=== PATIENT | female | born 1930 | race Caucasian/White ===

== ENCOUNTER 2018-12-04 19:45 | Inpatient (IN) | payer MEDICARE ==
[2018-12-03 23:00] VITALS: BP 138/74
[~2018-12-04] VITALS: Ht 162.6 cm; Wt 86.2 kg
--- NOTE | 2018-12-04 20:10 | NUR ---
The patient, JUNIE VALENCIA, 88 y/o, F admitted by ABIGAIL BRANHAM MD, was given written information regarding hospital policies, unit procedures and contact persons. Patient arrived to room via wheelchair assisted by registration staff member. Patient's daughter is at bedside at this time. Valuables were checked and noted. The patient was resting in bed at this time. Patient is Alert and oriented and is able to make their needs known at this time. Patient states no complaints of pain or discomfort while being asked admission questions. However the patient did become nauseous and started to vomit shortly after finishing admission questions. This RN is attempting to reach MD at this time for admit orders. The patient's call light is within reach. This RN will continue to monitor the patient at this time.
[2018-12-04 20:15] VITALS: BP 182/99
[2018-12-04] MEDS ORDERED: ATOR40TA59 PO (20:47)
[2018-12-04] MEDS ORDERED: ASPI-630 PO (20:47)
[2018-12-04] MEDS ORDERED: HYDR12.58 PO (20:47)
[2018-12-04] MEDS ORDERED: CLOP75TA PO (20:47)
[2018-12-04] MEDS: IV 1/2 NORMAL SALINE 1,000 ML IV SCH (22:20)
[2018-12-04] MEDS: ONDANSETRON PF 4 MG/2 ML VIAL. IV PRN (22:20)
[2018-12-04 22:52] LABS: BASO % 0 % (0-3); EOS % 0 % (0-3); HEMATOCRIT 39.7 % (36.0-47.0); HEMOGLOBIN 13.2 g/dL (12.0-15.5); LYMPH # 1.4 x10^3/uL (1.0-4.8); LYMPH % 14 % (24-48); MEAN CORPUSCULAR HEMOGLOBIN 27 pg (25-35); MEAN CORPUSCULAR HGB CONC 33 g/dL (31-37); MEAN CORPUSCULAR VOLUME 81 fL (79-100); MONO # 0.6 x10^3/uL (0.0-1.1); MONO % 6 % (0-9); NEUT # 8.4 x10^3uL (1.8-7.7); NEUT % 80 % (31-73); PLATELET COUNT 236 x10^3/uL (140-400); RED BLOOD COUNT 4.91 x10^6/uL (3.50-5.40); RED CELL DISTRIBUTION WIDTH 15.1 % (11.5-14.5); WHITE BLOOD COUNT 10.4 x10^3/uL (4.0-11.0)
[2018-12-04 23:00] VITALS: BP 138/74
[2018-12-04 23:13] LABS: ALBUMIN 3.3 g/dL (3.4-5.0); ALBUMIN/GLOBULIN RATIO 0.8 (1.0-1.7); CALCIUM 8.8 mg/dL (8.5-10.1); GFR 52.3; POTASSIUM 3.9 mmol/L (3.5-5.1); TOTAL BILIRUBIN 0.5 mg/dL (0.2-1.0); TOTAL PROTEIN 7.3 g/dL (6.4-8.2)
[2018-12-05 03:00] VITALS: BP 126/71
[2018-12-05 07:15] VITALS: BP 117/67
[2018-12-05] MEDS ORDERED: IOHEXOL 300 MG/ML 100ML VIAL. IV ONE (07:45)
--- NOTE | 2018-12-05 08:39 | HP ---
ADMIT DATE: 12/04/2018 CHIEF COMPLAINT AND HISTORY OF PRESENT ILLNESS: This 88-year-old white female is well known to me from followup in the office. I did see the patient earlier in the day in the office and she was felt to have a left pyelonephritis that was partially treated. She had been taking some amoxicillin at home that she had left over from prior infection, but was just overall feeling horrible. She denied, however, any fevers, chills or sweats. She was taking p.o. without nausea or vomiting at that time; however, still appeared ill, was started on Cipro with the urine culture obtained, was told if she was getting worse to call the who called on the evening of admission, stating she was much worse now with nausea, vomiting, inability to keep things down and the patient was directly admitted to the floor for IV hydration, nausea control, IV antibiotics while we are awaiting cultures. PAST MEDICAL HISTORY: Remarkable for hypertension. She had a prior tonsillectomy, adenoidectomy, prior hysterectomy, history of skin cancers, has had urinary tract infections over the years. She does have a history of a stroke. MEDICATIONS: Brought with the patient, listed on the computer, have been addressed. ALLERGIES: She has no known drug allergies. SOCIAL HISTORY: The patient is a nonsmoker, nondrinker. , lives at home with her . FAMILY HISTORY: Noncontributory. REVIEW OF SYSTEMS: Remarkable for just the generalized feeling horrible all over, the nausea, and vomiting which has gotten better with Zofran, ongoing left flank pain. She denies any dysuria, etc. PHYSICAL EXAMINATION: GENERAL: She is well-developed, well-nourished white female, in no acute distress. Daughter is in attendance. VITAL SIGNS: Stable. She is afebrile. HEAD, EYES, EARS, NOSE AND THROAT: Remarkable for several scabs on her left forehead and left side of her face from recent Efudex she used for actinic keratosis. NECK: Supple, without adenopathy or thyromegaly. CHEST: Clear to auscultation and percussion. HEART: Regular rate and rhythm without S3, S4, or murmur. ABDOMEN: Soft, nontender, without hepatosplenomegaly or masses. She does have some left flank tenderness. EXTREMITIES: Without cyanosis, clubbing, edema. NEUROLOGIC: She is intact. IMPRESSION: Left pyelonephritis with failed outpatient treatment with nausea, vomiting as discussed above. PLAN: Continue present IV hydration. I am going to keep her on IV Rocephin until we have a urine culture back and if one does not look like it was obtained here yesterday as ordered, but we have one cooking in the office. ABIGAIL BRANHAM MD DR: RON/nazario JOB#: [id number] / [id number]
[2018-12-05] MEDS: CLOPIDOGREL BISULFATE 75 MG TABLET PO SCH (08:55)
[2018-12-05] MEDS: hydroCHLOROthiazide 12.5 MG CAPSULE PO SCH (08:55)
[2018-12-05] MEDS: ONDANSETRON PF 4 MG/2 ML VIAL. IV PRN (08:56)
[2018-12-05] MEDS: ASPIRIN CHEWABLE 81 MG TABLET. PO SCH (08:56)
[2018-12-05] MEDS: IV 1/2 NORMAL SALINE 1,000 ML IV SCH ×2 (08:59→19:59)
[2018-12-05] MEDS ORDERED: METOCLOPRAMIDE HCL 10 MG/2 ML VIAL. IV ONE (09:45)
--- NOTE | 2018-12-05 10:02 | RAD ---
CT study of the abdomen and pelvis with contrast Clinical indications: Abdominal pain. Left flank pain. History of hysterectomy. History of skin cancer. TECHNIQUE: After IV infusion of 60 cc of Omnipaque 300, helical CT scanning of the abdomen and pelvis was performed. No GI contrast was administered. This may decrease the sensitivity to detect GI tract pathology. PQRS compliance Statement One or more of the following individualized dose reduction techniques were utilized for this study: 1. Automated exposure control 2. Adjustment of the mA and/or kV according to patient size 3. Use of iterative reconstruction technique FINDINGS: The liver and spleen are unremarkable. Diffuse fatty atrophy of the pancreas is seen. The gallbladder is normal and no extrahepatic biliary ductal dilatation is seen. No adrenal mass is evident. Small punctate nonobstructing stone of the left kidney is seen. No hydronephrosis or hydroureter is seen. No renal mass is evident. Urinary bladder wall is smooth. No focal aneurysmal dilatation of the abdominal aorta is seen. No enlarged abdominal or pelvic lymphadenopathy is evident. No obstructive bowel pattern is evident. The appendix is normal. Terminal ileum is unremarkable. Mild sigmoid diverticulosis is seen without diverticulitis. A small hiatal hernia is seen. Stomach is not distended. No free air or free fluid or mesenteric edema is seen. No lytic process is seen. No lung base consolidation is evident. Calcific granuloma of the posterior right lung base is seen. IMPRESSION: No acute abnormality is evident. Electronically signed by: Calixto Espinoza MD (12/05/2018 9:59 AM) [facility]
[2018-12-05] MEDS: cefTRIAXone IV Push 1 GM VIAL. IVP SCH (10:09)
[2018-12-05 10:52] VITALS: BP 124/74
--- NOTE | 2018-12-05 11:23 | NUR ---
SW following, discussed with RN. Pt is from home with . RN advised no SW needs at this time. SW will continue to follow.
[2018-12-05 11:49] LABS: BILIRUBIN,URINE NEGATIVE (NEG); CLARITY,URINE CLEAR; COLOR,URINE YELLOW; NITRITE,URINE NEGATIVE (NEG); PH,URINE 6.5; PROTEIN,URINE NEGATIVE (NEG-TRACE); UROBILINOGEN,URINE 0.2 mg/dL (0.2 mg/dL)
[2018-12-05 12:01] LABS: BACTERIA,URINE 0 /HPF (0-FEW); RBC,URINE 0 /HPF (0-2)
[2018-12-05 15:00] VITALS: BP 131/76
[2018-12-05 19:00] VITALS: BP 135/44
[2018-12-05] MEDS: ATORVASTATIN CALCIUM 40 MG TABLET. PO SCH (20:00)
[2018-12-05 22:48] VITALS: BP 131/63
[2018-12-06 02:45] VITALS: BP 152/97
[2018-12-06] MEDS: fentaNYL PF VIAL 100 MCG/2 ML VIAL IV PRN ×3 (03:29→09:02)
[2018-12-06] MEDS: ONDANSETRON PF 4 MG/2 ML VIAL. IV PRN ×3 (03:35→16:24)
[2018-12-06] MEDS: IV 1/2 NORMAL SALINE 1,000 ML IV SCH (06:05)
[2018-12-06 07:00] VITALS: BP 153/92
[2018-12-06] MEDS: CLOPIDOGREL BISULFATE 75 MG TABLET PO SCH (09:00)
[2018-12-06] MEDS: hydroCHLOROthiazide 12.5 MG CAPSULE PO SCH (09:00)
[2018-12-06] MEDS: ASPIRIN CHEWABLE 81 MG TABLET. PO SCH (09:00)
[2018-12-06] MEDS: cefTRIAXone IV Push 1 GM VIAL. IVP SCH (09:02)
[2018-12-06 11:01] VITALS: BP 150/86
[2018-12-06] MEDS ORDERED: HYDROcodone/APAP 5/325MG 1 TAB TABLET PO PRN ×2 (11:15)
[2018-12-06] MEDS ORDERED: KETOROLAC 30 MG/ML VIAL. IV PRN (11:15)
--- NOTE | 2018-12-06 11:15 | PDOC2 ---
YUE OROPEZA BRINE MIXER OPERATOR 12/06/18 1115: UROLOGY CONSULT Date of Consult Date of Consult DATE: 12/06/18 TIME: 10:36 Identification/Chief Complaint Chief Complaint Left flank pain Source Source: Caregiver, Chart review, Patient History of Present Illness Reason for Visit: This 88 year odl female was sent into the hospital by her PCP Dr. Deluca for a diagnosis of pyelonephritis. Evidently she had been complaining of left flank pain and he gave her a prescription for cipro, which she threw up after taking. She took a second one around 7 pm and threw this up also, and at that time she came into the emergency department where a CT scan was done. She is currently getting Rocephin q 24 hours. Patient complains of pain to left side and left flank intermittently for about three weeks now. She had a lot of pain when Dr. Deluca did CVA testing this morning, but she is not in any pain currently, only having nausea. She wants an IVP because an MD friend of hers told her she needs it and will go to another hospital if it isn't ordered for her here. She denies dysuria, incontinence, hematuria or OAB symptoms. Son related that she has a "stash" of amoxicillin at home that she takes when she starts to feel sick with a URI and she apparently did this two weeks ago when she started to have some respiratory symptoms but otherwise she has not been on antibiotics. She does not really get UTI's and has not had one in the past two years that she can remember. Patient started throwing up before RESOURCE MANAGER FORESTER could ask her about kidney stone history. Past Medical History Cardiovascular: HTN Dermatology: Other (skin cancers) Grav: 4 Para: 4 Social History No ALCOHOL: none Lives: with Family Current Medications Current Medications Current Medications Atorvastatin Calcium (Lipitor) 40 mg HS PO Last administered on 12/05/18at 20:00 ; Start 12/05/18 at 21:00 Ondansetron HCl (Zofran) 8 mg PRN Q6HRS PRN IV NAUSEA/VOMITING Last administered on 12/06/18at 09:06; Start 12/05/18 at 15:30 Allergies Allergies: Coded Allergies: No Known Drug Allergies (Unverified , 12/04/18) ROS Review Of Systems: CONSTITUTIONAL: No fever or chills EYES: No recent changes SKIN: No rash or itching CARDIOVASCULAR: No chest pain, syncope, palpitations, or edema RESPIRATORY: No SOB or cough GASTROINTESTINAL: + vomiting, left flank pain NEUROLOGICAL: No headaches or weakness ENDOCRINE: No cold or heat intolerance GENITOURINARY: No urgency or frequency of urination MUSCULOSKELETAL: + left flank pain LYMPHATICS: No enlarged lymph nodes PSYCHIATRIC: No anxiety or depression Physical Exam Physical Exam: General: Pleasant, no acute distress, well groomed Eyes: conjunctiva anicteric, eyes full range of motion ENT: moist oral mucosa, normal dentition Neck: Trachea midline, no masses Respiratory: unlabored breathing, not using accessory muscles, Back: No CVA pain. Abdomen: nontender, nondistended, no hepatosplenomegaly, no masses Skin: no rashes or skin lesions on visualized skin Psych: normal mood, affect. Alert and oriented x 3. Vitals VITALS Vital Signs Date Time Temp Pulse Resp B/P (MAP) Pulse Ox O2 Delivery O2 Flow Rate FiO2 12/06/18 09:02 14 12/06/18 08:00 Room Air 12/06/18 07:00 98.0 91 153/92 (112) 96 98.0 Labs Labs Laboratory Tests Test 12/04/18 22:40 12/05/18 11:41 White Blood Count 10.4 x10^3/uL (4.0-11.0) Red Blood Count 4.91 x10^6/uL (3.50-5.40) Hemoglobin 13.2 g/dL (12.0-15.5) Hematocrit 39.7 % (36.0-47.0) Mean Corpuscular Volume 81 fL (79-100) Mean Corpuscular Hemoglobin 27 pg (25-35) Mean Corpuscular Hemoglobin Concent 33 g/dL (31-37) Red Cell Distribution Width 15.1 % (11.5-14.5) Platelet Count 236 x10^3/uL (140-400) Neutrophils (%) (Auto) 80 % (31-73) Lymphocytes (%) (Auto) 14 % (24-48) Monocytes (%) (Auto) 6 % (0-9) Eosinophils (%) (Auto) 0 % (0-3) Basophils (%) (Auto) 0 % (0-3) Neutrophils # (Auto) 8.4 x10^3uL (1.8-7.7) Lymphocytes # (Auto) 1.4 x10^3/uL (1.0-4.8) Monocytes # (Auto) 0.6 x10^3/uL (0.0-1.1) Eosinophils # (Auto) 0.0 x10^3/uL (0.0-0.7) Basophils # (Auto) 0.0 x10^3/uL (0.0-0.2) Sodium Level 136 mmol/L (136-145) Potassium Level 3.9 mmol/L (3.5-5.1) Chloride Level 98 mmol/L (98-107) Carbon Dioxide Level 27 mmol/L (21-32) Anion Gap 11 (6-14) Blood Urea Nitrogen 26 mg/dL (7-20) Creatinine 1.0 mg/dL (0.6-1.0) Estimated GFR (Cockcroft-Gault) 52.3 BUN/Creatinine Ratio 26 (6-20) Glucose Level 201 mg/dL (70-99) Calcium Level 8.8 mg/dL (8.5-10.1) Total Bilirubin 0.5 mg/dL (0.2-1.0) Aspartate Amino Transf (AST/SGOT) 14 U/L (15-37) Alanine Aminotransferase (ALT/SGPT) 14 U/L (14-59) Alkaline Phosphatase 90 U/L (46-116) Total Protein 7.3 g/dL (6.4-8.2) Albumin 3.3 g/dL (3.4-5.0) Albumin/Globulin Ratio 0.8 (1.0-1.7) Amylase Level 35 U/L (25-115) Lipase 71 U/L (73-393) Urine Collection Type Unknown Urine Color Yellow Urine Clarity Clear Urine pH 6.5 Urine Specific [place] >=1.030 Urine Protein Negative mg/dL (NEG-TRACE) Urine Glucose (UA) Negative mg/dL (NEG) Urine Ketones (Stick) Negative mg/dL (NEG) Urine Blood Negative (NEG) Urine Nitrite Negative (NEG) Urine Bilirubin Negative (NEG) Urine Urobilinogen Dipstick 0.2 mg/dL (0.2 mg/dL) Urine Leukocyte Esterase Negative (NEG) Urine RBC 0 /HPF (0-2) Urine WBC 1-4 /HPF (0-4) Urine Bacteria 0 /HPF (0-FEW) Laboratory Tests Test 12/05/18 11:41 Urine Collection Type Unknown Urine Color Yellow Urine Clarity Clear Urine pH 6.5 Urine Specific [place] >=1.030 Urine Protein Negative mg/dL (NEG-TRACE) Urine Glucose (UA) Negative mg/dL (NEG) Urine Ketones (Stick) Negative mg/dL (NEG) Urine Blood Negative (NEG) Urine Nitrite Negative (NEG) Urine Bilirubin Negative (NEG) Urine Urobilinogen Dipstick 0.2 mg/dL (0.2 mg/dL) Urine Leukocyte Esterase Negative (NEG) Urine RBC 0 /HPF (0-2) Urine WBC 1-4 /HPF (0-4) Urine Bacteria 0 /HPF (0-FEW) Images Images CT ABD/Pelvis: IMPRESSION: No acute abnormality is evident. Assessment/Plan Assessment/Plan CT abd pelvis shows no acute abnormalities. UA is clean with 0 bacteria, leukocytes, nitrites, or blood PVR is 0 times three via bladder scanner. WBC WNL at 10.4 HOME CARE SCHEDULER 1.0, BUN 26 Pt afebrile I have discussed the case with Dr. Frausto and relayed patient's request for an IVP to him. In light negative findings I will leave the decision whether to order or not up to my supervising MD. He will be by later to discuss with patient. MACY FRAUSTO MD 12/06/18 1621: UROLOGY CONSULT Assessment/Plan Assessment/Plan Agree with assessment and plan. CT, labs unremarkable from urologic perspective. Do not recommend IVP, CT already performed is sufficient. Do not suspect urologic cause for her nausea and and pain. No additional recommendations at this time. YUE OROPEZA APRN Dec 06, 2018 11:15 MACY FRAUSTO MD Dec 06, 2018 16:21
[2018-12-06 11:25] LABS: HEMOGLOBIN A1C 6.4 % (4.8-5.6)
--- NOTE | 2018-12-06 11:38 | PDOC2 ---
GI CONSULT Reason For Consult: Vomiting HPI: HPI: 88 y/o female - history from chart, pt, and son. History a bit difficult to nail down, but she hasn't been feeling well for 3 weeks. Complains of left lower back ache - no radiation. At some point felt "sick to her stomach" - timing is unclear and "I never felt nauseated!" However, vomiting began after taking Cipro earlier this week. Now says "the medicine makes me sick" - I believe referring to Zia that she received after drinking broth this morning prior to "yellow" emesis. Denies reflux/heartburn, dysphagia, chronic n/v, hematemesis, abd pain, diarrhea , constipation, hematochezia, melena, or weight loss. Has to belch a lot. Son says prior to this, her health has been "bullet proof." She flips twin mattresses at home every Monday. Her other son's friend is a hospitalist at [facility] [employer] and recommended an IVP. Was seen in our office in 09/2017 for dysphagia and occasional heartburn. Interestingly, also reported n/w after taking Percocet for a back injury. Additionally, she was taking Nexium and meclizine at that time. Had EGD w/ Dr. Garcia on 10/11/17 (which she did not recall this morning) which showed esophageal ring (dilated to 56Fr), hiatal hernia, and gastritis. Distal esophagus and antral biopsies were negative (no H. pylori, EoE, or Gil's). Thinks she had a colonoscopy 40 years ago that was normal. Denies GB or pancreas history but had "the yellow jaundice" at age 11. I believe she takes ASA and Plavix ( she says just to look at her list). When asked about NSAIDs, she says "it thins my blood." On Rocephin here, followed by urology. Labs and CT unrevealing. PMH: PMH: CVA, HTN, skin cancer, UTI, hiatal hernia, esophageal ring, diverticulosis, nephrolithiasis (noted on CT in 09/2017) tonsillectomy, hysterectomy, left CEA, cataract removal FH: Family History: Cancer (colon - sibling, aunt; breast - sibling, aunt, MGM), DM , Other (Crohn's - sibling) Social History: Smoke: No ALCOHOL: none Drugs: None ROS: GEN: Denies fevers, chills, sweats HEENT: Denies blurred vision, sore throat CV: Denies chest pain RESP: Denies shortness of air, cough GI: Per HPI : Denies hematuria, dysuria ENDO: Denies weight changes NEURO: Denies confusion, dizziness MSK: +back pain SKIN: Denies jaundice, pruritus Vitals: Vitals: Vital Signs Date Time Temp Pulse Resp B/P (MAP) Pulse Ox O2 Delivery O2 Flow Rate FiO2 12/06/18 11:01 98.6 78 20 150/86 (107) 96 Room Air 98.6 Labs: Labs: Laboratory Tests Test 12/05/18 11:41 Urine Collection Type Unknown Urine Color Yellow Urine Clarity Clear Urine pH 6.5 Urine Specific [place] >=1.030 Urine Protein Negative mg/dL (NEG-TRACE) Urine Glucose (UA) Negative mg/dL (NEG) Urine Ketones (Stick) Negative mg/dL (NEG) Urine Blood Negative (NEG) Urine Nitrite Negative (NEG) Urine Bilirubin Negative (NEG) Urine Urobilinogen Dipstick 0.2 mg/dL (0.2 mg/dL) Urine Leukocyte Esterase Negative (NEG) Urine RBC 0 /HPF (0-2) Urine WBC 1-4 /HPF (0-4) Urine Bacteria 0 /HPF (0-FEW) Allergies: Coded Allergies: No Known Drug Allergies (Unverified , 12/04/18) Medications: Current Medications Medications (Trade) Dose Ordered Sig/Amber Route PRN Reason Start Time Stop Time Status Last Admin Dose Admin Atorvastatin Calcium (Lipitor) 40 mg HS PO 12/05/18 21:00 12/05/18 20:00 Ondansetron HCl (Zofran) 8 mg PRN Q6HRS PRN IV NAUSEA/VOMITING 12/05/18 15:30 12/06/18 09:06 Imaging: Imaging: CT A/P FINDINGS: The liver and spleen are unremarkable. Diffuse fatty atrophy of the pancreas is seen. The gallbladder is normal and no extrahepatic biliary ductal dilatation is seen. No adrenal mass is evident. Small punctate nonobstructing stone of the left kidney is seen. No hydronephrosis or hydroureter is seen. No renal mass is evident. Urinary bladder wall is smooth. No focal aneurysmal dilatation of the abdominal aorta is seen. No enlarged abdominal or pelvic lymphadenopathy is evident. No obstructive bowel pattern is evident. The appendix is normal. Terminal ileum is unremarkable. Mild sigmoid diverticulosis is seen without diverticulitis. A small hiatal hernia is seen. Stomach is not distended. No free air or free fluid or mesenteric edema is seen. No lytic process is seen. No lung base consolidation is evident. Calcific granuloma of the posterior right lung base is seen. IMPRESSION: No acute abnormality is evident. PE: GEN: hunched over in bed holding emesis basin - left lower back/flank pain down not worsen with palpation during my exam HEENT: Atraumatic, PERRL LUNGS: CTAB HEART: RRR ABD: NABS, S/ND/NT EXTREMITY: No edema SKIN: No rashes, no jaundice NEURO/PSYCH: A & O 3, anxious A/P: A/P: Left lower back/flank pain - ?MSK, ?related to flipping mattress Vomiting - ?related to pain or med H/o belching H/o hiatal hernia and esophageal ring s/p dilation in 10/2017 CRC screen - 40 years ago Diverticulosis "Jaundice" as a child H/o CVA on Plavix and ASA, h/o nephrolithiasis -- Will give empiric acid refueling rampman - IV for now since vomiting this morning after broth. Other per Dr. Bean. MAVIS VIVAR Dec 06, 2018 11:37
[2018-12-06] MEDS ORDERED: PANTOPRAZOLE IV PUSH 40 MG VIAL. IVP SCH (12:00)
--- NOTE | 2018-12-06 12:16 | NUR ---
SW following for discharge planning. Discussed with RN. RN advised no SW needs. Pt is currently on IV Rocephin Q24. Pt should discharge home when ready. SW will continue to follow.
[2018-12-06 15:04] VITALS: BP 156/92
[2018-12-06] MEDS: PANTOPRAZOLE IV PUSH 40 MG VIAL. IVP SCH (17:42)
[2018-12-06 19:00] VITALS: BP 169/88
--- NOTE | 2018-12-06 20:09 | PN ---
DATE: 12/06/2018 She is in room 552. SUBJECTIVE: The patient is awake, alert, miserable with pain, nausea, no vomiting during my exam. Family is present. OBJECTIVE: VITAL SIGNS: Stable and she is afebrile. She is awake and alert. LUNGS: Clear. HEART: Regular. ABDOMEN: Benign. She does have some left flank tenderness still to pressure, but none to percussion this morning. LABORATORY DATA: CT abdomen and pelvis with contrast showed no acute abnormality. Urine here does not look like infection; however, she had antibiotics prior to admission, not ruling out the possibility of a pyelonephritis, it was partially treated. ASSESSMENT: 1. Left flank pain with nausea and vomiting, felt to be pyelo at least on admission as an outpatient. Urine culture cooking, which will be available today or tomorrow. 2. Nausea and vomiting. PLAN: Per family request. We will add GI consult for the nausea and vomiting. We will ask Urology to see as it seems clinically that this is kidney generated, but the urine and CT at this point would suggest not. ABIGAIL BRANHAM MD DR: RON/nazario JOB#: [id number] / [id number]
[2018-12-06] MEDS: LACTOBACILLUS RHAMNOSUS GG 1 CAPSULE. PO SCH (20:24)
[2018-12-06] MEDS: ATORVASTATIN CALCIUM 40 MG TABLET. PO SCH (20:24)
[2018-12-06 23:00] VITALS: BP 134/68
[2018-12-07] MEDS: IV 1/2 NORMAL SALINE 1,000 ML IV SCH (01:26)
[2018-12-07 03:00] VITALS: BP 143/72
[2018-12-07 07:00] VITALS: BP 150/82
[2018-12-07] MEDS: PANTOPRAZOLE IV PUSH 40 MG VIAL. IVP SCH (07:29)
[2018-12-07] MEDS ORDERED: PANT20TA2 PO (08:22)
[2018-12-07] MEDS: LACTOBACILLUS RHAMNOSUS GG 1 CAPSULE. PO SCH (09:16)
[2018-12-07] MEDS: CLOPIDOGREL BISULFATE 75 MG TABLET PO SCH (09:16)
[2018-12-07] MEDS: ASPIRIN CHEWABLE 81 MG TABLET. PO SCH (09:16)
[2018-12-07] MEDS: hydroCHLOROthiazide 12.5 MG CAPSULE PO SCH (09:16)
[2018-12-07] MEDS: cefTRIAXone IV Push 1 GM VIAL. IVP SCH (09:17)
--- NOTE | 2018-12-07 10:54 | NUR ---
SW following. Discussed with RN, pt is from home with family. RN anticipates pt will discharge home today with self care. No SW needs at this time.
[2018-12-07 10:56] VITALS: BP 150/80
--- NOTE | 2018-12-07 11:17 | PDOC ---
Subjective: Subjective: Feels good, no complaints. Objective: Objective: Per RN - plans for regular diet at lunch and then DC. Vital Signs: Vital Signs Date Time Temp Pulse Resp B/P (MAP) Pulse Ox O2 Delivery O2 Flow Rate FiO2 12/07/18 10:56 98.6 90 18 150/80 (103) 93 Room Air 98.6 Labs: URINE CULTURE Final Final report URINE CULTURE RES 1 Final No growth PE: GEN: NAD LUNGS: CTAB HEART: RRR ABD: NABS, S/ND/NT NEURO/PSYCH: A & O 3 A/P: Back pain, vomiting - resolved -- Improved w/ plans to advance diet and DC. Can continue PPI. She'd like to follow-up in the office w/ Dr. Bean. MAVIS VIVAR Dec 07, 2018 11:16
--- NOTE | 2018-12-07 13:06 | DS ---
DATE OF DISCHARGE: 12/07/2018 PRIMARY DIAGNOSIS: Left pyelonephritis. ADDITIONAL DIAGNOSES: Nausea, vomiting, hypertension, status post cerebrovascular accident, history of skin cancers, new onset diabetes. CHIEF COMPLAINT AND HISTORY OF PRESENT ILLNESS: This 88-year-old white female was seen in the morning in the office on the day of admission feeling not good for several days. She had left flank pain, had been taking some leftover amoxicillin at home and felt like she was slightly better. Her urine culture and sensitivity was obtained. She was started on Cipro with instructions to call if she was worse. She got worse as the day went on, becoming sicker, weaker, had nausea and vomiting, inability to keep things down and was admitted for IV hydration, symptom control as well as treatment of a presumed pyelonephritis. SUMMARY OF STAY: The patient was admitted, had a couple of days of still a lot of nausea and vomiting, requiring IV hydration, Zofran, Reglan. She had pain, quite severe at times in the left flank that was remedied with a combination of anti-inflammatories as well as narcotic analgesics. She was seen by Urology who felt this was not coming from the kidney area by CAT scanning. GI started on Protonix with marked improvement in her symptomatology. As far as the nausea and vomiting went, she was feeling good by the day of discharge, eating well. It was felt she could be dismissed on some Protonix as well as her regular home meds and resume the Cipro at home assuming the urine culture I should be getting in my office on the day of discharge would suggest that covers the bug. DISPOSITION: The patient is discharged to home, regular diet, activity as tolerated, office in 1 week. DISCHARGE MEDICATIONS: Listed on med rec and have been addressed. ADDENDUM: Blood sugar was elevated in the hospital and hemoglobin A1c was checked which was 6.4, so she has beginning of diabetes and this was discussed with her. ABIGAIL BRANHAM MD DR: RON/nazario JOB#: [id number] / [id number]
--- NOTE | 2018-12-07 15:03 | NUR ---
Discharge Note: RON VALENCIA [facility] Discharge instructions and discharge home medications reviewed with Patient and a copy given. All questions have been answered and understanding verbalized. The following instructions and handouts were given: follow up, medications, when to seek medical attention. Discontinued lines and drains: peripheral IV dc'd intact. Patient discharged to home with family.
[2018-12-07] MEDS ORDERED: PANTOPRAZOLE 40 MG TABLET.DR. PO SCH (16:30)
== END 2018-12-07 14:00 | disposition home or self-care (01) | DRG 690 ==
LOC: 5 SOUTH 19:55
PROVIDERS: ADMIT Family Medicine; ATTEND Family Medicine
DX: N12 Tubulo-interstitial nephritis, not specified as acute or chronic (principal); I10 Essential (primary) hypertension; E11.9 Type 2 diabetes mellitus without complications; K57.30 Diverticulosis of large intestine without perforation or abscess without bleeding; Z79.82 Long term (current) use of aspirin; Z80.0 Family history of malignant neoplasm of digestive organs; Z83.3 Family history of diabetes mellitus; Z85.828 Personal history of other malignant neoplasm of skin; Z86.73 Personal history of transient ischemic attack (TIA), and cerebral infarction without residual deficits; Z87.442 Personal history of urinary calculi; Z90.710 Acquired absence of both cervix and uterus; Z90.89 Acquired absence of other organs; Z98.42 Cataract extraction status, left eye; Z98.41 Cataract extraction status, right eye
CPT/HCPCS: 36415; 74177; 80053; 81001; 82150; 83036; 83690; 85025; 87086; C9113; J0696; J1885; J2405; J2765; J3010; Q9967